=== PATIENT | male | born 1965 | race Caucasian/White ===

== ENCOUNTER 2017-12-13 10:13 | Emergency (ER) | payer OTHER, BC, SELFPAY | END 2017-12-13 12:20 | disposition home or self-care (01) | LOC: M ED 10:13 | DX: S39.002A Unspecified injury of muscle, fascia and tendon of lower back, initial encounter (principal); X50.9XXA Other and unspecified overexertion or strenuous movements or postures, initial encounter; Y92.89 Other specified places as the place of occurrence of the external cause | CPT/HCPCS: 99282 ==

== ENCOUNTER 2018-01-21 02:38 | Emergency (ER) | payer BC, OTHER ==
[2018-01-21 04:56] LABS: BASO % 0.3 % (0.0-1.0); EOS % 0.3 % (0.0-3.0); HEMATOCRIT 42.3 % (42.0-52.0); HEMOGLOBIN 15.2 g/dl (13.5-17.5); IMMATURE GRANULOCYTE % 0.2 % (0-3.0); LYMPH # 0.9 10^3/uL (1.5-4.5); LYMPH % 9.3 % (24.0-44.0); MEAN CORPUSCULAR HEMOGLOBIN 32.9 pg (27.0-33.0); MEAN CORPUSCULAR HGB CONC 35.9 g/dl (32.0-36.5); MEAN CORPUSCULAR VOLUME 91.6 fl (80.0-96.0); MONO # 0.7 10^3/uL (0.0-0.8); MONO % 7.2 % (0.0-5.0); NEUTROPHILS # 8.4 10^3/uL (1.8-7.7); NEUTROPHILS % 82.7 % (36.0-66.0); PLATELET COUNT, AUTOMATED 196 10^3/uL (150-450); RED BLOOD COUNT 4.62 10^6/uL (4.30-6.10); RED CELL DISTRIBUTION WIDTH 12.2 % (11.5-14.5); WHITE BLOOD COUNT 10.1 10^3/uL (4.0-10.0)
[2018-01-21] MEDS: NS 500 ML IV (05:06)
[2018-01-21] MEDS: KETOROLAC 30 MG/ML VIAL (J1885) IV (05:06)
[2018-01-21 05:23] LABS: ALBUMIN 3.9 GM/DL (3.2-5.2); ALBUMIN/GLOBULIN RATIO 1.22 (1.00-1.93); ALKALINE PHOSPHATASE 96 U/L (45-117); ALT/SGPT 25 U/L (12-78); ANION GAP 8 MEQ/L (8-16); AST/SGOT 20 U/L (7-37); BILIRUBIN,DIRECT 0.2 MG/DL (0.0-0.2); BILIRUBIN,TOTAL 0.5 MG/DL (0.2-1.0); BLOOD UREA NITROGEN 17 MG/DL (7-18); CALCIUM LEVEL 8.8 MG/DL (8.5-10.1); CARBON DIOXIDE LEVEL 24 MEQ/L (21-32); CHLORIDE LEVEL 107 MEQ/L (98-107); CREATININE FOR GFR 1.29 MG/DL (0.70-1.30); GLOMERULAR FILTRATION RATE > 60.0 (>56); GLUCOSE, FASTING 116 MG/DL (70-100); LIPASE 152 U/L (73-393); POTASSIUM SERUM 3.7 MEQ/L (3.5-5.1); SODIUM LEVEL 139 MEQ/L (136-145); TOTAL PROTEIN 7.1 GM/DL (6.4-8.2)
[2018-01-21] MEDS: MORPHINE 10 MG/ML 1ML VIAL (J2270) IV (05:30)
[2018-01-21 06:28] LABS: APPEARANCE, URINE CLEAR (CLEAR); BACTERIA, URINE AUTO NEGATIVE (NEGATIVE); BILIRUBIN, URINE AUTO NEGATIVE (NEGATIVE); BLOOD, URINE BLOOD 1+ (NEGATIVE); COLOR, URINE YELLOW (YELLOW); GLUCOSE, URINE (UA) AUTO 1+ mg/dL (NEGATIVE); KETONE, URINE AUTO TRACE mg/dL (NEGATIVE); LEUKOCYTE ESTERASE, URINE AUTO NEGATIVE (NEGATIVE); MUCUS, URINE SMALL (NEGATIVE); NITRITE, URINE AUTO NEGATIVE (NEGATIVE); PROTEIN, URINE AUTO 1+ mg/dL (NEGATIVE); RBC, URINE AUTO 1 /HPF (0-3); SPECIFIC GRAVITY URINE AUTO 1.015 (1.002-1.035); SQUAMOUS EPITHELIAL CELL UR AU 1 /HPF (0-6); UROBILINOGEN, URINE AUTO 0.2 mg/dL (0.0-2.0); WBC, URINE AUTO 1 /HPF (0-3)
== END 2018-01-21 06:54 | disposition home or self-care (01) ==
LOC: M ED 02:38
DX: N20.1 Calculus of ureter (principal); Z87.442 Personal history of urinary calculi; G89.29 Other chronic pain; M54.5 Low back pain
CPT/HCPCS: J1885

== ENCOUNTER → 2018-12-19 | Outpatient (CLI) | payer BC ==
[~2018-12-19] MED LIST: CYCL10TA PO; KETO10TAB PO; PERC5TAB12 PO
--- NOTE | 2018-12-19 10:18 | REP ---
URINARY TRACT SONOGRAPHY: HISTORY: Right low back pain. Hematuria. COMPARISON: CT study January 21, 2018. SONOGRAPHIC FINDINGS: Scanning through the level of the urinary bladder demonstrates smooth bladder contours. Right ureteral jet is not seen on color Doppler interrogation of the bladder lumen. The left emptying ureteral jet is observed. Renal cortical echogenicity pattern is normal. Contours are smooth. The right kidney measures 12.6 x 5.5 x 4.5 cm. Left renal dimensions are 14.0 x 4.9 x 7.2 cm. There is no hydronephrosis cyst or mass on the left. On the right however, there is moderate to severe right-sided hydronephrosis. There is cortical thinning on the right. Right-sided hydroureter measures 18 mm in AP dimension. No calculus or mass is seen. IMPRESSION: Moderate to severe right-sided hydronephrosis and noted. There is some cortical thinning on the right. Electronically Signed by Bola Diaz MD 12/19/2018 11:38 A
== END ==
LOC: M RAD 09:12
PROVIDERS: ATTEND Physician Assistant
DX: M54.9 Dorsalgia, unspecified (principal); R31.9 Hematuria, unspecified

== ENCOUNTER → 2018-12-22 | Outpatient (REF) | payer BC ==
[2018-12-22 20:36] LABS: APPEARANCE, URINE CLEAR (CLEAR); BACTERIA, URINE AUTO NEGATIVE (NEGATIVE); BILIRUBIN, URINE AUTO NEGATIVE (NEGATIVE); BLOOD, URINE BLOOD 1+ (NEGATIVE); COLOR, URINE YELLOW (YELLOW); GLUCOSE, URINE (UA) AUTO NEGATIVE (NEGATIVE); KETONE, URINE AUTO NEGATIVE (NEGATIVE); LEUKOCYTE ESTERASE, URINE AUTO NEGATIVE (NEGATIVE); NITRITE, URINE AUTO NEGATIVE (NEGATIVE); PROTEIN, URINE AUTO 2+ mg/dL (NEGATIVE); RBC, URINE AUTO 1 /HPF (0-3); SPECIFIC GRAVITY URINE AUTO 1.015 (1.002-1.035); SQUAMOUS EPITHELIAL CELL UR AU 0 /HPF (0-6); UROBILINOGEN, URINE AUTO 0.2 mg/dL (0.0-2.0); WBC, URINE AUTO 4 /HPF (0-3)
== END ==
LOC: M SMT 18:18
PROVIDERS: ATTEND Nurse Practitioner Women's Health
DX: N13.30 Unspecified hydronephrosis (principal)

== ENCOUNTER → 2018-12-30 | Outpatient (CLI) | payer BC ==
--- NOTE | 2018-12-30 08:44 | REP ---
Clinical: Hydronephrosis. Comparison: 01/21/2018. Technique: Axial noncontrast images from the lung bases to the pubic symphysis with coronal and sagittal re-formations. Findings: Right kidney demonstrates advanced proximal hydroureteronephrosis secondary to a 1.5 cm calculus in the ureteropelvic junction/proximal ureter (images [id number]). A 3 mm calculus is also identified at the right ureterovesical junction (images 142-144). Few nonobstructing right intrarenal calculi measure up to approximately 3 mm and the kidney itself demonstrates chronic cortical thinning and perinephric stranding. Left kidney includes 1 mm nonobstructing calculus and no evidence for hydroureteronephrosis or obstructing ureteral calculus. Left ureter and bladder appear grossly normal. Prostate gland is age-appropriate. Liver, spleen, pancreas, gallbladder, and bilateral adrenal glands are normal for noncontrast evaluation. The enteric system is without obstruction or acute inflammatory process. Normal terminal ileum and appendix are identified in the right lower quadrant. No ascites. No free air. No adenopathy. Abdominal aorta without aneurysm. Musculoskeletal structures demonstrate age-related degenerative changes without focal osseous abnormality. Lung bases are clear. Impression: 1. Moderate to significant right proximal hydroureteronephrosis secondary to a 1.5 cm obstructing calculus in the ureteropelvic junction as well as 3 mm calculus in the distal right ureter at the ureterovesicle junction. The kidney itself demonstrates chronic cortical thinning and perinephric stranding likely secondary to longstanding obstruction. Left kidney includes 1 mm nonobstructing calculus. Electronically Signed by Sujit Thapa MD 12/30/2018 08:36 A
== END ==
LOC: M RAD 07:49
PROVIDERS: ATTEND Nurse Practitioner Women's Health
DX: N13.30 Unspecified hydronephrosis (principal); N20.0 Calculus of kidney

== ENCOUNTER → 2019-01-13 | Outpatient (CLI) | payer BC ==
[~2019-01-13] MED LIST changes: +AMOX250T PO; +BENZ200C70 PO; +PRED20TA PO
[2019-01-13 11:13] LABS: HEMATOCRIT 42.7 % (42.0-52.0); HEMOGLOBIN 14.6 g/dl (13.5-17.5); MEAN CORPUSCULAR HEMOGLOBIN 32.1 pg (27.0-33.0); MEAN CORPUSCULAR HGB CONC 34.2 g/dl (32.0-36.5); MEAN CORPUSCULAR VOLUME 93.8 fl (80.0-96.0); PLATELET COUNT, AUTOMATED 191 10^3/uL (150-450); RED BLOOD COUNT 4.55 10^6/uL (4.30-6.10); WHITE BLOOD COUNT 6.3 10^3/uL (4.0-10.0)
[2019-01-13 11:15] LABS: APPEARANCE, URINE CLEAR (CLEAR); BACTERIA, URINE AUTO NEGATIVE (NEGATIVE); BILIRUBIN, URINE AUTO NEGATIVE (NEGATIVE); BLOOD, URINE BLOOD 2+ (NEGATIVE); COLOR, URINE YELLOW (YELLOW); GLUCOSE, URINE (UA) AUTO 1+ mg/dL (NEGATIVE); KETONE, URINE AUTO NEGATIVE (NEGATIVE); LEUKOCYTE ESTERASE, URINE AUTO TRACE (NEGATIVE); MUCUS, URINE SMALL (NEGATIVE); NITRITE, URINE AUTO NEGATIVE (NEGATIVE); PROTEIN, URINE AUTO 2+ mg/dL (NEGATIVE); RBC, URINE AUTO 3 /HPF (0-3); SPECIFIC GRAVITY URINE AUTO 1.016 (1.002-1.035); SQUAMOUS EPITHELIAL CELL UR AU 0 /HPF (0-6); UROBILINOGEN, URINE AUTO 0.2 mg/dL (0.0-2.0); WBC, URINE AUTO 4 /HPF (0-3)
[2019-01-13 11:23] LABS: INR 0.9; PROTHROMBIN TIME 12.2 SECONDS (12.1-14.4)
[2019-01-13 11:24] LABS: PARTIAL THROMBOPLASTIN TIME 26.4 SECONDS (25.4-37.6)
[2019-01-13 11:44] LABS: CALCIUM LEVEL 8.6 MG/DL (8.5-10.1); CREATININE FOR GFR 1.79 MG/DL (0.70-1.30); GLOMERULAR FILTRATION RATE 42.5 (>56); POTASSIUM SERUM 3.9 MEQ/L (3.5-5.1)
--- NOTE | 2019-01-13 15:18 | REP ---
REASON: History of renal calculi. PRIORS: None. FINDINGS: The superior mediastinal structures are midline. The cardiac silhouette is unremarkable in size, shape, and position. The diaphragmatic surfaces of the lungs are regular, and the costophrenic angles are clear. The pulmonary aguirre are clear. The imaged osseous structures are intact. IMPRESSION: There is no acute cardiopulmonary disease.. Electronically Signed by Ac Epps DO 01/13/2019 06:09 P
== END ==
LOC: M LAB 10:20
PROVIDERS: ATTEND Nurse Practitioner Women's Health
DX: N20.0 Calculus of kidney (principal); Z01.818 Encounter for other preprocedural examination

== ENCOUNTER → 2019-01-31 | Outpatient (REF) | payer BC ==
[2019-01-31 17:07] LABS: ALBUMIN 3.9 GM/DL (3.2-5.2); BILIRUBIN,TOTAL 0.6 MG/DL (0.2-1.0); CALCIUM LEVEL 9.4 MG/DL (8.5-10.1); CREATININE FOR GFR 1.39 MG/DL (0.70-1.30); FREE T4 1.07 NG/DL (0.76-1.46); GLOMERULAR FILTRATION RATE 56.9 (>56); POTASSIUM SERUM 4.3 MEQ/L (3.5-5.1); THYROID STIMULATING HORMONE 0.643 uIU/ML (0.358-3.740); TOTAL PROTEIN 7.3 GM/DL (6.4-8.2)
[2019-01-31 17:45] LABS: BASO % 0.2 % (0.0-1.0); HEMATOCRIT 43.8 % (42.0-52.0); LYMPH # 0.5 10^3/uL (1.5-4.5); MEAN CORPUSCULAR HEMOGLOBIN 33.4 pg (27.0-33.0); MEAN CORPUSCULAR HGB CONC 34.2 g/dl (32.0-36.5); MEAN CORPUSCULAR VOLUME 97.6 fl (80.0-96.0); MONO # 0.1 10^3/uL (0.0-0.8); MONO % 2.2 % (0.0-5.0); NEUTROPHILS # 4.9 10^3/uL (1.8-7.7); NEUTROPHILS % 88.4 % (36.0-66.0); PLATELET COUNT, AUTOMATED 199 10^3/uL (150-450); RED BLOOD COUNT 4.49 10^6/uL (4.30-6.10); WHITE BLOOD COUNT 5.6 10^3/uL (4.0-10.0)
== END ==
LOC: M SFHCLERA 10:55
PROVIDERS: ATTEND Family Medicine
DX: N17.9 Acute kidney failure, unspecified (principal); Z79.899 Other long term (current) drug therapy

== ENCOUNTER → 2019-02-01 | Outpatient (REF) | payer BC ==
[2019-02-01 20:21] LABS: APPEARANCE, URINE CLEAR (CLEAR); BACTERIA, URINE AUTO NEGATIVE (NEGATIVE); BILIRUBIN, URINE AUTO NEGATIVE (NEGATIVE); BLOOD, URINE BLOOD NEGATIVE (NEGATIVE); COLOR, URINE YELLOW (YELLOW); GLUCOSE, URINE (UA) AUTO 1+ mg/dL (NEGATIVE); KETONE, URINE AUTO NEGATIVE (NEGATIVE); LEUKOCYTE ESTERASE, URINE AUTO NEGATIVE (NEGATIVE); NITRITE, URINE AUTO NEGATIVE (NEGATIVE); PROTEIN, URINE AUTO 2+ mg/dL (NEGATIVE); RBC, URINE AUTO 1 /HPF (0-3); SPECIFIC GRAVITY URINE AUTO 1.017 (1.002-1.035); SQUAMOUS EPITHELIAL CELL UR AU 0 /HPF (0-6); UROBILINOGEN, URINE AUTO 0.2 mg/dL (0.0-2.0); WBC, URINE AUTO 3 /HPF (0-3)
== END ==
LOC: M LAB REF 16:25
PROVIDERS: ATTEND Hospitalist
DX: N17.9 Acute kidney failure, unspecified (principal)

== ENCOUNTER 2019-02-10 12:15 | Day surgery (SDC) | payer BC ==
[~2019-02-10] VITALS: Ht 172.7 cm; Wt 93.6 kg
[~2019-02-10 12:15] MED LIST changes: +LR 1,000 ML IV ONE; +NS 1,000 ML IV ONE
[2019-02-10] MEDS ORDERED: LIDOCAINE 2% INJ 100 MG/5 ML SDV (FOR ANES.) As Ordered ONE (16:21)
[2019-02-10] MEDS ORDERED: fentaNYL 100 MCG/2 ML INJECTION (J3010) As Ordered ONE ×2 (16:21→17:17)
[2019-02-10] MEDS ORDERED: MIDAZOLAM INJ 2 MG/2 ML VIAL (J2250) As Ordered ONE (16:21)
[2019-02-10] MEDS ORDERED: PROPOFOL 200 MG/20 ML VIAL As Ordered ONE (16:21)
[2019-02-10] MEDS ORDERED: ONDANSETRON 4MG/2ML VIAL (J2405) As Ordered ONE ×2 (16:22→18:07)
[2019-02-10] MEDS ORDERED: dexameTHASONE 4 MG/ML 1ML VIAL (J1100) As Ordered ONE (16:22)
[2019-02-10] MEDS ORDERED: CONRAY-60 60% 50ML VIAL (Q9961) As Ordered ONE (16:26)
[2019-02-10] MEDS ORDERED: LR 1,000 ML IV SCH (18:15)
[2019-02-10] MEDS ORDERED: PROMETHAZINE INJ 25 MG/ML VIAL (J2550) IV PRN (18:15)
[2019-02-10] MEDS ORDERED: METOCLOPRAMIDE INJ 10MG/2ML VIAL (J2765) IV PRN (18:15)
[2019-02-10] MEDS ORDERED: fentaNYL 100 MCG/2 ML INJECTION (J3010) IV PRN (18:15)
[2019-02-10] MEDS ORDERED: OXYCODONE/APAP 5MG/325MG(BULK FOR ED) 1 TABLET PO PRN (18:15)
[2019-02-10] MEDS ORDERED: oxyCODONE 5MG TAB PO PRN (18:15)
--- NOTE | 2019-02-10 18:21 | REP ---
C-ARM VIEWS ABDOMEN: Four C-ARM views of the abdomen are performed during placement of a right ureteral stent. Small amount of contrast partially opacifies the right renal pelvis and calyceal system. A right ureteral stent is seen. The proximal end is coiled in the right renal pelvis. The distal end is coiled in the urinary bladder. 11 seconds of fluoroscopy time was utilized. Electronically Signed by Ismael Alvarez MD 02/10/2019 07:50 P
[2019-02-10] MEDS ORDERED: ONDANSETRON 4MG/2ML VIAL (J2405) IV PRN (18:30)
--- NOTE | 2019-02-10 18:41 | RO ---
DATE OF PROCEDURE: 02/10/2019 PREPROCEDURE DIAGNOSIS: Kidney stone. POSTPROCEDURE DIAGNOSIS: Kidney stone. OPERATIVE PROCEDURE: Cystoscopy, right ureteroscopy with laser lithotripsy and basket extraction of stone, right retrograde pyelogram with intraoperative interpretation of images, right JJ ureteral stent placement. SURGEON: Leonid Lake MD RESEARCH ENGINEER: None. ANESTHESIA: General. OPERATIVE INDICATIONS: This is a 53-year-old male who was found to have an approximately 1.1 cm proximal right ureteral stone. He was brought to the operating room today for the above listed procedure. DESCRIPTION OF PROCEDURE: The patient was brought to the operating room and general anesthesia was induced. Prophylactic antibiotics were infused. He was then placed in the dorsal lithotomy position and prepped and draped in the usual sterile fashion. A rigid cystoscope was inserted through the urethral meatus and advanced into the bladder. A guidewire was advanced up the right collecting system. I then advanced a ureteral access sheath over the wire up into the right collecting system. I went up the access sheath with a flexible ureteroscope and within the proximal ureter, an approximately 1.1 cm stone was seen. The stone appeared to be impacted. At this point, I utilized a 272 Micron laser fiber to fragment the stone into several smaller pieces. All the fragments were then removed using a basket. Once satisfied all the fragments were removed, I examined the kidney and no additional fragment was seen. A retrograde pyelogram was performed and was notable for moderate to severe right hydronephrosis. I then withdrew the ureteroscope along with the access sheath and no additional stones were seen. At this point, I utilized the wire to advance a 7-Vietnamese x 22-32 cm JJ ureteral stent up the right collecting system. The wire was removed and there were adequate curls of the stent in the right renal pelvis and in the bladder. The bladder was emptied of all fluids. This marked the conclusion of the procedure. The patient was then taken out of the dorsal lithotomy position, awakened from anesthesia and transported to the recovery room in stable condition. ESTIMATED BLOOD LOSS: 5 mL INTRAOPERATIVE COMPLICATIONS: None. SPECIMENS: Kidney stone fragments. PLAN: I will leave the patient's stent in for approximately 4 weeks given the amount of scarring in the proximal right ureter from the impacted stone. I will likely get an ultrasound 6 to 8 weeks after the stent is removed. [facility]
[2019-02-10] MEDS ORDERED: PERCOCET 5MG/325MG TAB As Ordered ONE (19:46)
[2019-02-10] MEDS: PERCOCET 5MG/325MG TAB PO PRN ×2 (19:47→22:17)
[2019-02-10 20:25] VITALS: BP 140/89
[2019-02-17 00:08] LABS: COMMENT Note: (.); Ca Ox Monohydrate 75 % (.)
== END 2019-02-10 20:30 | disposition home or self-care (01) ==
LOC: M SDC 12:15
PROVIDERS: ATTEND Urology
DX: N20.0 Calculus of kidney (principal); J30.89 Other allergic rhinitis; M54.9 Dorsalgia, unspecified; I10 Essential (primary) hypertension; E78.00 Pure hypercholesterolemia, unspecified; M12.9 Arthropathy, unspecified; R21 Rash and other nonspecific skin eruption; J40 Bronchitis, not specified as acute or chronic; N17.9 Acute kidney failure, unspecified; E66.09 Other obesity due to excess calories; Z68.32 Body mass index [BMI] 32.0-32.9, adult; Z79.899 Other long term (current) drug therapy; Z86.79 Personal history of other diseases of the circulatory system; Z84.1 Family history of disorders of kidney and ureter
CPT/HCPCS: 52356; 74420; 82360; 88300; C1769; C1894; J0690; J1100; J2250; J2405; J3010; Q9961

== ENCOUNTER 2021-01-08 13:46 | Emergency (ER) | payer OTHER, BC ==
[~2021-01-08] VITALS: Ht 175.3 cm; Wt 99.1 kg
[~2021-01-08 13:46] MED LIST changes: +CYCL-707 PO; -CYCL10TA PO; -LR 1,000 ML IV ONE; -NS 1,000 ML IV ONE
[2021-01-08] MEDS ORDERED: ONDANSETRON 4MG/2ML VIAL IV ONE (13:55)
[2021-01-08 14:13] LABS: BASO # 0.1 10^3/uL (0.0-0.2); BASO % 0.7 % (0.0-1.0); EOS # 0.1 10^3/uL (0.0-0.5); EOS % 1.4 % (0.0-3.0); HEMATOCRIT 45.1 % (42.0-52.0); HEMOGLOBIN 15.5 g/dl (13.5-17.5); LYMPH # 1.3 10^3/uL (1.5-5.0); LYMPH % 19.1 % (24.0-44.0); MEAN CORPUSCULAR HEMOGLOBIN 32.8 pg (27.0-33.0); MEAN CORPUSCULAR HGB CONC 34.4 g/dl (32.0-36.5); MEAN CORPUSCULAR VOLUME 95.6 fl (80.0-96.0); MONO # 0.5 10^3/uL (0.0-0.8); MONO % 7.3 % (2.0-8.0); NEUTROPHILS % 71.1 % (36.0-66.0); PLATELET COUNT, AUTOMATED 191 10^3/uL (150-450); RED BLOOD COUNT 4.72 10^6/uL (4.30-6.10)
[2021-01-08] MEDS: MORPHINE 4 MG/ML 1ML VIAL/SYRINGE (J2270) IV PRN ×2 (14:14→14:43)
[2021-01-08] MEDS ORDERED: NS 1,000 ML IV ONE (14:20)
[2021-01-08 14:25] LABS: INR 0.92; PROTHROMBIN TIME 12.5 SECONDS (12.5-14.3)
[2021-01-08 14:26] LABS: PARTIAL THROMBOPLASTIN TIME 24.3 SECONDS (24.2-38.5)
--- NOTE | 2021-01-08 14:33 | REP ---
INDICATION: Trauma. COMPARISON: 01/13/2019 PA and lateral TECHNIQUE: Portable supine FINDINGS: The technique utilized in obtaining the radiograph has magnified the cardiac silhouette and accentuated the interstitial markings. The superior mediastinal structures are midline. The cardiac silhouette is unremarkable in size, shape, and position. The diaphragmatic surfaces of the lungs are regular, and the costophrenic angles are clear. The pulmonary aguirre are clear. The imaged osseous structures are intact. IMPRESSION: There is no acute cardiopulmonary disease. <Electronically signed by Ac Epps > 01/08/21 [id number]
--- NOTE | 2021-01-08 14:34 | REP ---
INDICATION: Trauma. COMPARISON: None. TECHNIQUE: A single AP view of the pelvis was performed portably. FINDINGS: The hip joint spaces are symmetric and relatively well maintained. There is no acute fracture or destructive osseous lesion. IMPRESSION: No acute bony abnormality. <Electronically signed by Ac Epps > 01/08/21 [id number]
[2021-01-08 14:38] LABS: ALBUMIN 3.7 GM/DL (3.2-5.2); ALT/SGPT 31 U/L (12-78); AMYLASE 77 U/L (25-115); BILIRUBIN,DIRECT 0.1 MG/DL (0.0-0.2); BILIRUBIN,TOTAL 0.4 MG/DL (0.2-1.0); CK-MB VALUE MASS < 1.0 NG/ML (<3.6); CPK CREATINE PHOSPHOKINASE 293 U/L (39-308); ETHYL ALCOHOL (ETHANOL) < 0.003 % (0.000-0.010); LIPASE 261 U/L (73-393); MB/CK RELATIVE INDEX 0.34 (< OR =4); TOTAL PROTEIN 6.9 GM/DL (6.4-8.2); TROPONIN I < 0.02 NG/ML (< 0.10)
[2021-01-08] MEDS ORDERED: ISOVUE-370 76% 100ML VIAL As Ordered ONE (14:40)
--- NOTE | 2021-01-08 15:14 | REPVR ---
PROCEDURE INFORMATION: Exam: CT Head Without Contrast Exam date and time: 01/08/2021 3:03 PM Age: 55 years old Clinical indication: Injury or trauma; Fall; Blunt trauma (contusions or hematomas) TECHNIQUE: Imaging protocol: Computed tomography of the head without contrast. Radiation optimization: All CT scans at this facility use at least one of these dose optimization techniques: automated exposure control; mA and/or kV adjustment per patient size (includes targeted exams where dose is matched to clinical indication); or iterative reconstruction. COMPARISON: No relevant prior studies available. FINDINGS: Brain: Examination of the brain demonstrates normal structure and attenuation.The cortical vela / white matter interfaces are preserved throughout the brain.No acute infarction, masses or hemorrhage is seen. Cerebral ventricles: The ventricular system is not dilated and is appropriate for the patient's age. Bones/joints: Unremarkable. No acute fracture. Paranasal sinuses: Small retention cyst in the left maxillary sinus. Mastoid air cells: Visualized mastoid air cells are well aerated. Soft tissues: Unremarkable. IMPRESSION: No acute infarction, masses or hemorrhage is seen. No acute intracranial abnormality is identified. Electronically signed by: Benja Webb On 01/08/2021 15:14:06 PM
--- NOTE | 2021-01-08 15:16 | REP ---
INDICATION: Trauma. COMPARISON: None. TECHNIQUE: CT chest performed following the intravenous administration of 100 cc of Isovue 370. Sagittal and coronal reconstruction images are performed. FINDINGS: Lungs: There are dependent atelectatic changes bilaterally. Mediastinum: No adenopathy. Estella: No adenopathy. Axilla: No adenopathy. Pleura: No effusion. Heart: Not enlarged. Thoracic aorta: No aneurysm or dissection. Upper abdominal structures: Unremarkable. Visualized osseous structures: There is no fracture of the visualized osseous structures. IMPRESSION: No acute abnormalities visualized. <Electronically signed by Ismael Alvarez > 01/08/21 [id number]
--- NOTE | 2021-01-08 15:17 | REPVR ---
PROCEDURE INFORMATION: Exam: CT Cervical Spine Without Contrast Exam date and time: 01/08/2021 3:03 PM Age: 55 years old Clinical indication: Injury or trauma; Fall; Work related; Blunt trauma TECHNIQUE: Imaging protocol: Computed tomography images of the cervical spine without contrast. Radiation optimization: All CT scans at this facility use at least one of these dose optimization techniques: automated exposure control; mA and/or kV adjustment per patient size (includes targeted exams where dose is matched to clinical indication); or iterative reconstruction. COMPARISON: No relevant prior studies available. FINDINGS: Bones/joints: The cervical vertebral bodies are normal height and alignment.No acute fracture or dislocation is seen. Discs/Spinal canal/Neural foramina: There are multilevel degenerative changes including degenerative disc disease, spondylosis and facet degenerative changes. Epidural space: There is no evidence of epidural masses or hemorrhage. Prevertebral Space: The prevertebral soft tissues appear normal. Lungs: Lung apices are normal. Soft tissues: There is straightening of the cervical spine which could be secondary to positioning or muscle spasm. There are no soft tissue masses or fluid collections. IMPRESSION: No acute fracture or dislocation is seen. Electronically signed by: Benja Webb On 01/08/2021 15:17:15 PM
--- NOTE | 2021-01-08 15:24 | REP ---
INDICATION: Trauma COMPARISON: 12/30/2018. TECHNIQUE: CT Scan of the abdomen and pelvis was performed with intravenous administration of 100 cc of Isovue 370, and oral contrast. FINDINGS: Liver: Normal Gallbladder: Unremarkable. Spleen: Normal. Adrenals: Normal. Pancreas: Normal. Kidneys: Moderate right renal atrophy is noted. There is no hydronephrosis bilaterally. 3 small right intrarenal calculi are noted. There is a cyst in the lower pole the left kidney which measures approximately 1 cm in diameter.. Small and large bowel: Unremarkable. Free fluid: None. Abdominal aorta: No aneurysm or dissection. Adenopathy: None. Appendix: Not inflamed. Osseous structures: There are mild degenerative changes of the spine. There is no fracture of the visualized osseous structures. Pelvis: No mass. Small bilateral inguinal hernias containing noninflamed fat. IMPRESSION: No acute abnormalities identified. <Electronically signed by Ismael Alvarez > 01/08/21 [id number]
[2021-01-08 16:18] VITALS: BP 129/68
[2021-01-08 17:08] LABS: AMPHETAMINES LEVEL URINE NEGATIVE (NEGATIVE); BARBITURATES URINE NEGATIVE (NEGATIVE); BENZODIAZEPINES URINE NEGATIVE (NEGATIVE); CANNABINOIDS URINE NEGATIVE (NEGATIVE); COCAINE METABOLITE URINE NEGATIVE (NEGATIVE); METHADONE URINE NEGATIVE (NEGATIVE); OPIATES URINE POSITIVE (NEGATIVE); PHENCYCLIDINE URINE NEGATIVE (NEGATIVE)
--- NOTE | 2021-01-09 02:43 | ECGEPIP ---
[facility] - ED Test Date: 2021-01-08 Pat Name: BRIDGET ANGEL Department: Room: - Gender: Male Cell Plasterer: GREGORY : 1965 Requested By: NAY DUMAS Order Number: [id number] Reading MD: Иван Patricia Measurements Intervals [place] Rate: 78 P: 34 LA: 170 QRS: 17 QRSD: 96 T: 21 QT: 378 QTc: 430 Interpretive Statements Normal sinus rhythm NO PRIORS FOR COMPARISON Electronically Signed on 01-09-2021 2:43:19 EDT by Иван Patricia
== END 2021-01-08 16:30 | disposition home or self-care (01) ==
LOC: EDBD 13:46 → M ED 13:46
DX: S20.211A Contusion of right front wall of thorax, initial encounter (principal); W17.89XA Other fall from one level to another, initial encounter; Y92.59 Other trade areas as the place of occurrence of the external cause; Y93.89 Activity, other specified; Y99.0 Civilian activity done for income or pay; I10 Essential (primary) hypertension; J44.9 Chronic obstructive pulmonary disease, unspecified; Z79.899 Other long term (current) drug therapy
CPT/HCPCS: 70450; 71045; 71260; 72125; 72170; 74177; 80047; 80076; 80307; 81001; 82077; 82150; 82550; 82553; 83605; 83690; 84484; 85025; 85610; 85730; 86850; 86900; 86901; 87086; 93005; 93041; 94010; 94760; 96361; 96374; 99285; J2270; J2405; Q9967

== ENCOUNTER 2021-12-29 23:10 | Emergency (ER) | payer BC, OTHER ==
[~2021-12-29] VITALS: Ht 172.7 cm; Wt 100.0 kg
[2021-12-30] MEDS ORDERED: FLUORESCEIN OPHTH 1 MG STRIP OD ONE (07:30)
[2021-12-30] MEDS ORDERED: PROPARACAINE 0.5% OPHTH SOL 15ML OD ONE (07:30)
[2021-12-30] MEDS ORDERED: BOOSTRIX/ADACEL VACCINE (DIPHTH/PERTUSS/ACELL/TETANUS) 0.5ML SYR IM ONE (07:35)
[2021-12-30 08:36] VITALS: BP 130/85
[2021-12-30] MEDS ORDERED: POLYSOL OD (08:40)
== END 2021-12-30 08:47 | disposition home or self-care (01) ==
LOC: M ED 23:10
DX: S05.01XA Injury of conjunctiva and corneal abrasion without foreign body, right eye, initial encounter (principal); W31.1XXA Contact with metalworking machines, initial encounter; Y92.9 Unspecified place or not applicable; Y93.9 Activity, unspecified; Y99.0 Civilian activity done for income or pay

== ENCOUNTER 2022-07-07 19:59 | Emergency (ER) | payer BC ==
[~2022-07-07] VITALS: Ht 172.7 cm; Wt 103.3 kg
[~2022-07-07 19:59] MED LIST changes: +POLYSOL OD
[2022-07-07 20:00] VITALS: BP 158/90
== END 2022-07-07 22:37 | disposition left against medical advice (07) ==
LOC: M ED 19:59
DX: Z53.21 Procedure and treatment not carried out due to patient leaving prior to being seen by health care provider (principal)

== ENCOUNTER → 2022-10-01 | Outpatient (REF) | payer BC ==
[2022-10-02 19:07] LABS: ALBUMIN 4.2 g/dL (2.9-4.4); ALPHA-1-GLOBULINS 0.2 g/dL (0.0-0.4); ALPHA-2-GLOBULINS 0.8 g/dL (0.4-1.0); BETA-1-GLOBULINS 1.2 g/dL (0.7-1.3); GAMMA GLOBULINS 0.9 g/dL (0.4-1.8); TOTAL PROTEIN ELECTROPHORESIS 7.1 g/dL (6.0-8.5)
[2022-10-02 21:40] LABS: VITAMIN B12 LEVEL 285 PG/ML (211-911)
[2022-10-02 22:26] LABS: C REACTIVE PROTEIN QUANTITATIV < 0.40 MG/DL (<1.0)
[2022-10-02 22:28] LABS: RHEUMATOID FACTOR QUANT 4.5 IU/ML (<14)
[2022-10-02 23:07] LABS: ANA (HEP2) Negative (.); CYCLIC CITRULLINATED PEPTIDE 3 units (0-19); FREE KAPPA LIGHT CHAINS SERUM 25.7 mg/L (3.3-19.4); FREE LAMBDA LIGHT CHAINS SERUM 19.2 mg/L (5.7-26.3); KAPPA/LAMBDA RATIO SERUM 1.34 (0.26-1.65)
== END ==
LOC: M LAB REF 12:05
PROVIDERS: ATTEND Internal Medicine
DX: G60.9 Hereditary and idiopathic neuropathy, unspecified (principal); M13.0 Polyarthritis, unspecified

== ENCOUNTER → 2023-04-21 | Outpatient (CLI) | payer BC ==
[2023-04-21 16:44] LABS: THYROID STIMULATING HORMONE 1.095 uIU/ML (0.55-4.78)
[2023-04-21 16:45] LABS: RHEUMATOID FACTOR QUANT < 3.5 IU/ML (<14)
[2023-04-21 16:46] LABS: VITAMIN B12 LEVEL 295 PG/ML (211-911)
[2023-04-21 16:47] LABS: FOLATE > 24.00 NG/ML (>5.4)
[2023-04-21 16:49] LABS: HEMOGLOBIN A1c 5.1 % (4.0-6.0)
== END ==
LOC: M PLALAB 12:45
PROVIDERS: ATTEND Psychiatry & Neurology Neurology
DX: E03.9 Hypothyroidism, unspecified (principal); E11.9 Type 2 diabetes mellitus without complications; G62.9 Polyneuropathy, unspecified; D51.9 Vitamin B12 deficiency anemia, unspecified; E51.9 Thiamine deficiency, unspecified; E53.1 Pyridoxine deficiency

== ENCOUNTER 2023-11-25 07:00 | Outpatient (RCR) | payer BC | END 2023-11-28 | LOC: M PT 07:00 | PROVIDERS: ATTEND Psychiatry & Neurology Neurology | DX: M54.9 Dorsalgia, unspecified (principal) ==

== ENCOUNTER 2023-12-21 07:00 | Outpatient (RCR) | payer BC | END 2023-12-28 | LOC: M PT 07:00 | PROVIDERS: ATTEND Psychiatry & Neurology Neurology | DX: M54.9 Dorsalgia, unspecified (principal) ==

== ENCOUNTER 2024-01-12 07:00 | Outpatient (RCR) | payer BC | END 2024-01-28 | LOC: M PT 07:00 | PROVIDERS: ATTEND Psychiatry & Neurology Neurology | DX: M54.9 Dorsalgia, unspecified (principal) ==

== ENCOUNTER → 2024-09-16 | Outpatient (REF) | payer BC | LOC: M LAB REF 17:28 | PROVIDERS: ATTEND Physician Assistant Medical | DX: J06.9 Acute upper respiratory infection, unspecified (principal) ==

== ENCOUNTER → 2025-06-20 | Outpatient (CLI) | payer BC | LOC: M RAD 06:30 | PROVIDERS: ATTEND Physical Medicine & Rehabilitation | DX: M47.26 Other spondylosis with radiculopathy, lumbar region (principal) ==